=== PATIENT | female | born 1960 ===

== ENCOUNTER 2025-10-14 13:23 | Emergency (ER) | payer BC ==
[~2025-10-14] VITALS: Ht 162.6 cm; Wt 73.6 kg
[2025-10-14 13:27] VITALS: TEMP 98.3
--- NOTE | 2025-10-14 14:33 | Physician Documentation ---
History of Present Illness ~ Chief Complaint: Asthma Stated Complaint: COUGH Time Seen by MD: 14:32 HPI Patient is a very pleasant 65-year-old female that presents to the emergency department for evaluation of shortness of breath times several days. Patient reports she has a previous history of RSV and possible pneumonia last year. Patient reports she has had several days of increased shortness of breath and productive cough. Patient denies current fever chills nausea vomiting diarrhea but reports he may have had a fever recently. Patient denies any cardiac issues history of asthma diabetes but does report hypertension. Review of Systems ROS As stated above in the HPI, otherwise all systems are reviewed and negative. Physical Exam Vital Signs: Temperature: 98.3, Heart Rate: 85, Respiratory Rate: 16, BP: 160 /82, Pulse Oximetry: 98, Weight: 73.640 Oxygen Flow Rate: 0 Physical Exam VITALS: Reviewed and as above. GENERAL: Alert, no apparent distress. HEENT: Normocephalic, atraumatic, PERRL, EOMI, dry mucosa, no erythema RESPIRATORY: Patient inspiratory expiratory wheezes noted in the left upper lobe, re-evaluation after breathing treatment shows significant improvement, patient moving air well into her bilateral lower bases. CHEST: No accessory muscle use, no retractions CV: Regular rate, rhythm, no edema, no murmur, No: JVD GI: Soft, non-tender, bowels sounds present, no rebound, guarding, or rigidity BACK: No CVA tenderness, or swelling MUSCULOSKELETAL No deformities, no edema SKIN: Warm and dry, no rash NEURO: Oriented x4, No motor or sensory deficit PSYCH: Normal mood and affect, no agitation Progress Results/Orders Results/Orders Orders - MELISSA WATSON [employer]ISH[employer] Chest,Two Views (10/14/25 15:17) Ipratropium/Albuterol Nebule (Ipratrop/A (10/14/25 15:05) Completed Orders - MELISSA WATSON [employer] Cbc/Diff (10/14/25 15:01) CMP (10/14/25 15:01) Urinalysis, Cult If Indicated (10/14/25 15:01) Chest,Two Views (10/14/25 15:17) Stat Ekg (10/14/25 ) Medications Received in ER Medications (Trade) Dose Ordered Sig/Bessie Route PRN Reason Start Time Stop Time Status Last Admin Dose Admin (ipratrop/ albuterol 0.5-3(2.5) MG/3ml nebule) 3 ml Q4H PRN NEB SOB or wheezing 10/14/25 15:05 10/14/25 16:33 3 ML Vital Signs 10/14/25 10/14/25 10/14/25 10/14/25 13:27 15:17 16:34 16:43 Temp 98.3 Pulse 85 81 80 76 Resp 16 14 20 20 B/P (MAP) 160/82 162/84 (110) Pulse Ox 98 96 98 100 O2 Delivery Room Air* Room Air* O2 Flow Rate 0 0 0 FiO2 21 21 Laboratory Tests Test 10/14/25 15:16 10/14/25 15:43 White Blood Count 11.3 H Red Blood Count 4.21 Hemoglobin 12.9 Hematocrit 37.3 Mean Corpuscular Volume 88.4 Mean Corpuscular Hemoglobin 30.7 Mean Corpuscular Hemoglobin Concent 34.7 Red Cell Distribution Width 13.4 Platelet Count 227 Mean Platelet Volume 8.1 Neutrophils (%) (Auto) 75.4 H Lymphocytes (%) (Auto) 17.6 L Monocytes (%) (Auto) 5.6 Eosinophils (%) (Auto) 1.1 Basophils (%) (Auto) 0.3 Neutrophils # (Auto) 8.6 H Lymphocytes # (Auto) 2.0 Monocytes # (Auto) 0.6 Eosinophils # (Auto) 0.1 Basophils # (Auto) 0.0 CBC Comment Sodium Level 145 Potassium Level 4.5 Chloride Level 107 Carbon Dioxide Level 29.4 Anion Gap 9 Blood Urea Nitrogen 15 Creatinine 1.05 H Estimated GFR/1.73 m2 53 BUN/Creatinine Ratio 14.3 Glucose Level 111 H Calcium Level 9.1 Total Bilirubin 0.3 Aspartate Amino Transf (AST/SGOT) 22 Alanine Aminotransferase (ALT/SGPT) 28 Alkaline Phosphatase 65 Total Protein 7.7 Albumin 3.9 Globulin 3.8 Albumin/Globulin Ratio 1.0 L Chemistry Comments Urine Specimen Description Urinal Urine Color Straw Urine Clarity Clear Urine pH 6.0 Urine Specific [place] <=1.005 Urine Protein Negative Urine Glucose (UA) Negative Urine Ketones Negative Urine Occult Blood Negative Urine Nitrite Negative Urine Bilirubin Negative Urine Urobilinogen 0.2 Urine Leukocyte Esterase Negative Urine Culture Indicated Not ind Volume Urine Centrifuged 10 ml Urine Comment Medical Decision Making Additional information obtaine: other Findings MEDICAL DECISION MAKING: This is a 65-year-old female presenting with several days of progressive dyspnea and productive cough. History is notable for prior RSV infection and possible pneumonia last year. She denies current fever, chills, or gastrointestinal symptoms, though reports possible recent fever. Past medical history is significant for hypertension; she denies asthma, diabetes, or cardiac disease. Clinical Assessment: The patient's presentation is most consistent with acute bronchitis with bronchospasm. Physical examination reveals clear lung gamez bilaterally without wheezes after bronchodilator treatment, with good air movement to the bases. The absence of tachycardia (heart rate >100 beats/min), tachypnea (respiratory rate >24 breaths/min), current fever (oral temperature >38C), and abnormal chest examination findings (rales, egophony, or tactile fremitus) makes pneumonia unlikely in this immunocompetent adult. Given the clinical presentation of acute bronchitis without evidence of bacterial pneumonia, routine antibiotic therapy is not indicated. The [employer] suggests no routine prescription of antibiotic therapy for immunocompetent adult outpatients with cough due to acute bronchitis. The patient demonstrated significant clinical improvement with bronchodilator therapy in the emergency department, supporting a diagnosis of bronchospasm associated with acute bronchitis. Treatment Plan: The patient will be discharged home with the following: Albuterol metered-dose inhaler for symptomatic relief of bronchospasm. While data from clinical trials are inconsistent, clinical experience suggests beta-2 agonists may provide relief for wheezing and shortness of breath. Dexamethasone 10 mg orally as a short course of systemic corticosteroid therapy to reduce airway inflammation and prevent symptom recurrence. Discharge Instructions: The patient has been counseled that cough may persist for 10-21 days, and occasionally longer. She has been advised to seek reassessment if symptoms persist or worsen, at which point targeted investigations including chest radiography may be considered. Follow-up: The patient should follow up with her primary care provider within 1 week to confirm symptom resolution and optimize therapy as needed. She has been instructed to return to the emergency department for worsening dyspnea, development of fever, chest pain, or any concerning symptoms. Risk-Benefit Assessment: The decision to discharge was based on clinical stability, significant improvement with bronchodilator therapy, clear lung examination, and absence of pneumonia criteria. The patient has appropriate social support and understands return precautions. Heart Score: 1 Differential Dx:Considerations: Include: anxiety, asthma, bronchitis, cardiogenic shock, CHF, COPD, dysrhythmia, hypertension, accelerated, hypertension, essential, hypertension, malignant, hyperventilation, hyponatremia, myocardial infarction, panic attack, pneumonia, pneumonitis, pneumothorax, PSVT, pulmonary embolism, respiratory distress, respiratory failure, sinusitis, upper resp. infection, other Departure Impression: Primary Impression: Acute upper respiratory infection Additional Impression: Viral illness Condition: Stable Discharge Instructions: Upper Respiratory Infection, Adult Additional Instructions: Your Diagnosis You were treated in the emergency department for acute bronchitis (inflammation of the breathing tubes in your lungs) with wheezing. Your chest X-ray did not show pneumonia, and your symptoms improved significantly after receiving a breathing treatment. What to Expect Your cough may last for 2 to 3 weeks, and sometimes longer. This is normal for bronchitis and does not mean you need antibiotics. [2] Most people get better on their own with time and supportive care. Your Medications Albuterol inhaler (rescue inhaler) Use 1-2 puffs every 4-6 hours as needed for shortness of breath or wheezing Shake the inhaler well before each use You may use this less often as your symptoms improve Do not use this regularly if you are not having symptoms Dexamethasone You received a dose of this steroid medication in the emergency department to reduce inflammation in your airways No additional doses are needed at home Home Care Instructions Get plenty of rest and drink fluids to stay hydrated Use a humidifier or breathe in steam from a hot shower to help loosen mucus Avoid smoke, strong fumes, and other lung irritants Continue taking your blood pressure medication as prescribed When to Return to the Emergency Department Seek immediate medical attention if you develop any of the following: Worsening shortness of breath or difficulty breathing Chest pain Fever (temperature above 100.4F or 38C) Coughing up blood Confusion or extreme drowsiness Symptoms that get worse instead of better after a few days Follow-Up Care Schedule an appointment with your primary care doctor within 1 week If your cough persists or worsens after 2-3 weeks, contact your doctor for reassessment Your doctor may want to do additional testing if your symptoms do not improve Important Reminders Antibiotics are not helpful for bronchitis and were not prescribed because your illness is likely caused by a virus Your symptoms should gradually improve over the next few weeks Call your doctor if you have any questions or concerns about your recovery Referrals: NO PRIMARY CARE PROVIDER (PCP) Prescriptions albuterol inhaler (Pro-Air Inhaler) 8.5 Gm Inhaler 1-2 PUFFS PO Q4H PRN for shortness of breath, #1 INH Prov: MELISSA WATSON 10/14/25 Education Educated: Patient Educated regarding: diagnosis, treatment, need for follow up Signature Scribe Signature: A Attestation: Scribed for Melissa Watson by CHRISTOS Pappas . 10/14/25 17:11 MELISSA WATSON Oct 14, 2025 14:33
--- NOTE | 2025-10-14 15:28 | RADIOLOGY REPORT ---
DI CHEST,TWO VIEWS CLINICAL HISTORY: Shortness of breath and productive cough. COMPARISON: None TECHNIQUE: Frontal and lateral view of the chest was obtained FINDINGS: Lines and Tubes: None Lungs: No focal consolidation. Pleura: No effusion. No pneumothorax. Cardiomediastinal contours: Unremarkable Bones: No acute osseous abnormality. IMPRESSION: 1. No acute cardiopulmonary disease.
--- NOTE | 2025-10-14 15:34 | ELECTROCARDIOGRAPH REPORT ---
[facility] Test Date: 2025-10-14 Test Time: 15:30:53 Pat Name: AYSE STEELE Department: [facility]- Patient ID: [id number] Room: Gender: F Paper Hanger: : 1960 Requested By: RAMU WATSON Order Number: [id number] Reading MD: Dr. ALVIN [place] Measurements Intervals [place] Rate: 76 P: 85 GA: 179 QRS: 74 QRSD: 95 T: 66 QT: 397 QTc: 447 Interpretive Statements Sinus rhythm Probable left atrial enlargement Electronically Signed On 10-15-2025 18:42:[address] ALVIN Dallas Please click the below link to view image of tracing.
[2025-10-14 15:35] LABS: MEAN PLATELET VOLUME 8.1 FL (7.4-10.4); RED CELL DISTRIBUTION WIDTH 13.4 % (11.5-14.5)
[2025-10-14 15:50] LABS: CREATININE 1.05 MG/DL (0.40-0.90); TOTAL CARBON DIOXIDE 29.4 MMOL/L (24-32); eCRCL 47 ML/MIN; eGFR 53 ML/MIN
[2025-10-14 15:55] LABS: LEUKOCYTE ESTERASE ,URINE NEGATIVE (Neg); NITRITES, URINE NEGATIVE (Neg); OCCULT BLOOD,URINE NEGATIVE (Neg)
[2025-10-14 16:00] LABS: UA COLLECTION TYPE URINAL
[2025-10-14] MEDS: ipratropium/albuterol 3ml nebule NEB PRN (16:33)
[2025-10-14 16:34] VITALS: PULSE 80; RESP 20; O2SAT 98
[2025-10-14 16:43] VITALS: PULSE 76; RESP 20; O2SAT 100
[2025-10-14] MEDS ORDERED: ALBU8HFA PO (17:09)
[2025-10-14] MEDS: DEXAMETHASONE 6 MG TABLET PO SCH (17:26)
[2025-10-14 17:36] VITALS: BP 133/75; PULSE 86; O2SAT 98
[2025-10-14 17:40] VITALS: RESP 15
== END 2025-10-14 17:45 | disposition home or self-care (01) ==
LOC: ER 13:24
DX: J06.9 Acute upper respiratory infection, unspecified (principal); B34.9 Viral infection, unspecified; J45.909 Unspecified asthma, uncomplicated
CPT/HCPCS: 36415; 71046; 80053; 81003; 85025; 93005; 94640; 94760; 99285; J8540